=== PATIENT | male | born 1955 | race Two or more races ===

== ENCOUNTER 2023-08-22 15:13 | Emergency (ER) | payer OTHER ==
[~2023-08-22] VITALS: Ht 175.3 cm; Wt 88.9 kg
[2023-08-22] MEDS ORDERED: SIMVASTATIN5 MG PO (15:30)
[2023-08-22] MEDS ORDERED: TIROSINT13 MCG PO (15:31)
[2023-08-22] MEDS ORDERED: KETO10TA2 PO (17:25)
[2023-08-22] MEDS ORDERED: KETOROLAC TROMETHAMINE 60 MG VIAL IM ONE (17:30)
== END 2023-08-22 17:30 | disposition home or self-care (01) ==
LOC: ER 15:13
DX: M25.562 Pain in left knee (principal); W18.39XA Other fall on same level, initial encounter; Y93.89 Activity, other specified; Y92.89 Other specified places as the place of occurrence of the external cause; E78.00 Pure hypercholesterolemia, unspecified; E03.9 Hypothyroidism, unspecified